=== PATIENT | female | born 1980 | race African-American/Black ===

== ENCOUNTER 2023-03-21 07:43 | Day surgery (SDC) | payer OTHER ==
[~2023-03-21] VITALS: Ht 170.2 cm; Wt 74.8 kg
[~2023-03-21 07:43] MED LIST: fentaNYL citrate 0.05 MG/ML VIAL ONE
[2023-03-21] MEDS ORDERED: PROPOFOL 200 MG/20 ML VIAL IV ONE (09:10)
[2023-03-21] MEDS ORDERED: SEVOFLURANE 250 ML BTL INH ONE (09:10)
[2023-03-21] MEDS ORDERED: LIDOCAINE 1% 500 MG/50 ML VIAL ONE (09:11)
[2023-03-21] MEDS ORDERED: BUPIVACAINE-MPF/EPI 0.25% 30 ML VIAL INJ ONE (09:12)
[2023-03-21] MEDS ORDERED: SUCCINYLCHOLINE CHLORIDE 200 MG/10 ML VIAL IVP ONE (09:13)
[2023-03-21] MEDS ORDERED: DEXAMETHASONE 4 MG/ML VIAL ONE (09:34)
[2023-03-21] MEDS ORDERED: ONDANSETRON 4 MG/2 ML VIAL ONE (09:34)
[2023-03-21] MEDS ORDERED: LACTATED RINGERS 1,000 ML IV SCH (10:10)
[2023-03-21] MEDS ORDERED: ONDANSETRON 4 MG/2 ML VIAL IVP PRN (10:10)
[2023-03-21] MEDS ORDERED: MEPERIDINE 25 MG/ML SYR IVP PRN (10:10)
[2023-03-21] MEDS ORDERED: diphenhydrAMINE 50 MG/ML VIAL IVP PRN (10:10)
[2023-03-21] MEDS: HYDROmorphone 1 MG/ML AMP IVP PRN ×3 (10:20→10:40)
[2023-03-21] MEDS ORDERED: HYDROmorphone PFS 2 MG/ML SYR ONE (10:36)
== END 2023-03-21 11:45 | disposition home or self-care (01) ==
LOC: MDS 07:43 → MMU 07:43 → MDS 11:45
PROVIDERS: ATTEND Surgery
DX: K64.8 Other hemorrhoids (principal); Z80.0 Family history of malignant neoplasm of digestive organs
CPT/HCPCS: 46260; 71045; 93005; J0330; J1100; J1170; J2001; J2405; J2704; J3010; J3490; J7120; 88304